=== PATIENT | female | born 1960 | race Caucasian/White ===

== ENCOUNTER 2020-04-04 05:39 | Inpatient (IN) ==
[2020-04-04] MEDS ORDERED: LIDOCAINE 1% 5 ML VIAL ONE (06:04)
[2020-04-04] MEDS ORDERED: BUPIVACAINE SPINAL 0.75% 2 ML AMP SPINAL ONE (06:04)
[2020-04-04] MEDS ORDERED: BUPIVACAINE MPF 0.5% /EPI 30 ML VIAL ONE (06:04)
[2020-04-04] MEDS ORDERED: DEXAMETHASONE 4 MG/1 ML VIAL ONE (06:05)
[2020-04-04] MEDS ORDERED: DEXMEDETOMIDINE 200 MCG/2 ML VIAL ONE (06:05)
[2020-04-04] MEDS ORDERED: MIDAZOLAM 2 MG/2 ML VIAL ONE (06:05)
[2020-04-04] MEDS ORDERED: VANCOMYCIN 1,000 MG VIAL ONE (06:08)
[2020-04-04] MEDS ORDERED: ceFAZolin 1,000 MG VIAL ONE (06:08)
[2020-04-04] MEDS ORDERED: ACETAMINOPHEN 500 MG TABLET PO ONE (06:45)
[2020-04-04] MEDS ORDERED: DIAZEPAM 5 MG TABLET PO ONE (06:45)
[2020-04-04] MEDS ORDERED: FAMOTIDINE 20 MG TABLET PO ONE (06:45)
[2020-04-04] MEDS ORDERED: CLINDAMYCIN INJ 50 ML IV ONE (06:56)
[2020-04-04] MEDS ORDERED: VANCOMYCIN INJ 1,000 MG in SODIUM CHLORIDE 0.9% 250 ML IV ONE (07:00)
[2020-04-04] MEDS ORDERED: CLINDAMYCIN INJ 900 MG in PREMIX 1 EACH IV ONE (07:00)
[2020-04-04] MEDS ORDERED: DIAZEPAM 5 MG TABLET ONE (07:04)
[2020-04-04] MEDS ORDERED: ACETAMINOPHEN 500 MG TABLET ONE (07:04)
[2020-04-04] MEDS ORDERED: FAMOTIDINE 20 MG TABLET ONE (07:04)
[2020-04-04] MEDS: LACTATED RINGERS 1,000 ML IV SCH ×2 (07:20→15:30)
[2020-04-04] MEDS ORDERED: PROMETHAZINE 25 MG/1 ML VIAL IM PRN (09:10)
[2020-04-04] MEDS ORDERED: BISACODYL 10 MG SUPP RECTAL PRN (09:10)
[2020-04-04] MEDS ORDERED: MAGNESIUM HYDROXIDE SUSP 30 ML UDCUP PO PRN (09:10)
[2020-04-04] MEDS ORDERED: diphenhydrAMINE CAP 25 MG CAPSULE PO PRN (09:10)
[2020-04-04] MEDS ORDERED: LACTULOSE 20 GM/30 ML UDCUP PO PRN (09:10)
[2020-04-04] MEDS ORDERED: TRANEXAMIC ACID 1,000 MG/10 ML VIAL ONE (09:43)
[2020-04-04] MEDS ORDERED: ONDANSETRON 4 MG/2 ML VIAL IV PRN (12:58)
[2020-04-04] MEDS ORDERED: HYDROmorphone 2 MG/1 ML VIAL ONE (13:00)
[2020-04-04] MEDS ORDERED: ONDANSETRON 4 MG/2 ML VIAL ONE (13:00)
[2020-04-04] MEDS: HYDROmorphone 2 MG/1 ML VIAL IV PRN ×4 (13:00→15:05)
[2020-04-04] MEDS ORDERED: ALBUTEROL/IPRATROPIUM 3 ML NEB RESP TX ONE (13:14)
[2020-04-04] MEDS ORDERED: KETOROLAC 30 MG/1 ML VIAL IV ONE (15:10)
[2020-04-04] MEDS: CLINDAMYCIN INJ 900 MG in PREMIX 1 EACH IV SCH ×2 (16:11→23:41)
[2020-04-04 16:16] LABS: Basophils % 0.1 % (0.0-0.8); Eosinophils % 0.1 % (0.00-10.9); Hematocrit 41.2 VOL% (35.7-47.0); Hemoglobin 12.8 GM/DL (12.0-16.0); Immature Granulocytes % 0.4 %; Immature Granulocytes Absolute 0.05 #; Lymphocytes # 0.8 10*3/uL (1.4-4.0); Lymphocytes % 6.5 % (21.3-54.2); Mean Corpuscular HGB Conc 31.1 GM/DL (32-36); Mean Corpuscular Volume 91.6 FL (87-102); Mean Platelet Volume 10.5 FL (9.6-12.0); Monocytes % 2.7 % (1.7-12.7); Neutrophils % 90.2 % (38.7-73.9); Platelet Count 260 T/CUMM (130-400); Red Cell Distribution Width 13.9 % (9.3-17.3); White Blood Count 12.8 T/CUMM (4-12)
[2020-04-04 16:21] LABS: Calcium 8.6 MG/DL (8.5-10.1); Osmolality,Calculated 280.5 MOS/KG (273-304)
[2020-04-04] MEDS: DOCUSATE SODIUM 100 MG CAPSULE PO SCH (21:12)
[2020-04-04] MEDS: FONDAPARINUX 2.5 MG/0.5 ML SYRINGE SUBCUT SCH (21:12)
[2020-04-04] MEDS: TEMAZEPAM 7.5 MG CAPSULE PO PRN (21:12)
[2020-04-04] MEDS: PREGABALIN 25 MG CAPSULE PO PRN (23:41)
[2020-04-05 06:23] LABS: Basophils % 0.1 % (0.0-0.8); Hematocrit 36.7 VOL% (35.7-47.0); Hemoglobin 11.5 GM/DL (12.0-16.0); Immature Granulocytes % 0.4 %; Immature Granulocytes Absolute 0.05 #; Lymphocytes # 1.5 10*3/uL (1.4-4.0); Lymphocytes % 13.6 % (21.3-54.2); Mean Corpuscular HGB Conc 31.3 GM/DL (32-36); Mean Corpuscular Volume 90.8 FL (87-102); Mean Platelet Volume 11.1 FL (9.6-12.0); Monocytes % 9.3 % (1.7-12.7); Neutrophils % 76.6 % (38.7-73.9); Platelet Count 253 T/CUMM (130-400); Red Blood Count 4.04 MC/CUMM (3.8-5.5); White Blood Count 11.4 T/CUMM (4-12)
[2020-04-05 06:46] LABS: Calcium 8.7 MG/DL (8.5-10.1); Osmolality,Calculated 282.3 MOS/KG (273-304)
[2020-04-05] MEDS: MONTELUKAST 10 MG TABLET PO SCH (09:04)
[2020-04-05] MEDS: DOCUSATE SODIUM 100 MG CAPSULE PO SCH ×2 (09:04→20:36)
[2020-04-05] MEDS: PANTOPRAZOLE 40 MG TABLET PO SCH (09:05)
[2020-04-05] MEDS: MORPHINE 4 MG/1 ML VIAL IV PRN ×3 (09:06→20:32)
[2020-04-05] MEDS ORDERED: ALBUTEROL/IPRATROPIUM 3 ML NEB RESP TX PRN (09:09)
[2020-04-05] MEDS: ALBUTEROL/IPRATROPIUM 3 ML NEB RESP TX SCH ×2 (12:45→19:27)
[2020-04-05] MEDS: ONDANSETRON 4 MG/2 ML VIAL IV PRN ×2 (14:05→20:35)
[2020-04-05] MEDS: TEMAZEPAM 7.5 MG CAPSULE PO PRN (20:36)
[2020-04-05] MEDS: FONDAPARINUX 2.5 MG/0.5 ML SYRINGE SUBCUT SCH (20:36)
[2020-04-05] MEDS: PREGABALIN 25 MG CAPSULE PO PRN (23:20)
[2020-04-06] MEDS: ALBUTEROL/IPRATROPIUM 3 ML NEB RESP TX SCH ×4 (00:33→19:14)
[2020-04-06 05:04] LABS: Basophils % 0.3 % (0.0-0.8); Eosinophils # 0.5 10*3/uL (0.0-0.87); Eosinophils % 4.4 % (0.00-10.9); Hematocrit 34.6 VOL% (35.7-47.0); Hemoglobin 10.8 GM/DL (12.0-16.0); Immature Granulocytes % 0.3 %; Immature Granulocytes Absolute 0.04 #; Lymphocytes % 33.9 % (21.3-54.2); Mean Corpuscular HGB Conc 31.2 GM/DL (32-36); Mean Platelet Volume 10.8 FL (9.6-12.0); Monocytes % 8.8 % (1.7-12.7); Neutrophils % 52.3 % (38.7-73.9); Platelet Count 255 T/CUMM (130-400); Red Blood Count 3.76 MC/CUMM (3.8-5.5); Red Cell Distribution Width 14.4 % (9.3-17.3); White Blood Count 11.7 T/CUMM (4-12)
[2020-04-06 05:12] LABS: Calcium 8.4 MG/DL (8.5-10.1)
[2020-04-06] MEDS: DOCUSATE SODIUM 100 MG CAPSULE PO SCH ×2 (08:32→21:25)
[2020-04-06] MEDS: PANTOPRAZOLE 40 MG TABLET PO SCH (08:32)
[2020-04-06] MEDS: MONTELUKAST 10 MG TABLET PO SCH (08:32)
[2020-04-06] MEDS: TEMAZEPAM 7.5 MG CAPSULE PO PRN (21:25)
[2020-04-06] MEDS: FONDAPARINUX 2.5 MG/0.5 ML SYRINGE SUBCUT SCH (21:26)
[2020-04-06] MEDS: PREGABALIN 25 MG CAPSULE PO PRN (22:30)
[2020-04-07] MEDS: ALBUTEROL/IPRATROPIUM 3 ML NEB RESP TX SCH ×2 (00:44→07:16)
[2020-04-07] MEDS: PANTOPRAZOLE 40 MG TABLET PO SCH (09:55)
[2020-04-07] MEDS: DOCUSATE SODIUM 100 MG CAPSULE PO SCH (09:55)
[2020-04-07] MEDS: MONTELUKAST 10 MG TABLET PO SCH (09:56)
[2020-04-07 12:37] VITALS: BP 147/74
== END 2020-04-07 13:50 | disposition home health service (06) | DRG 470 ==
LOC: N.OR 05:39 → N.SDSINP 05:41 → N.3E 15:40
PROVIDERS: ADMIT Orthopaedic Surgery; ATTEND Orthopaedic Surgery

== ENCOUNTER 2022-02-02 11:27 | Inpatient (IN) ==
[2022-02-02] MEDS ORDERED: methylPREDNISolone SOD SUC 125 MG/2 ML VIAL IV STA (11:54)
[2022-02-02] MEDS ORDERED: ALBUTEROL NEB SOLN 5 MG/ML 20 ML/BOTTLE CONT NEB SCH (12:00)
[2022-02-02 12:16] LABS: Basophils # 0.1 10*3/uL (0.0-0.2); Basophils % 0.7 % (0.0-0.8); Eosinophils # 0.8 10*3/uL (0.0-0.87); Eosinophils % 7.8 % (0.00-10.9); Hematocrit 47.1 VOL% (35.7-47.0); Hemoglobin 14.4 GM/DL (12.0-16.0); Immature Granulocytes % 0.6 %; Immature Granulocytes Absolute 0.06 #; Lymphocytes % 37.8 % (21.3-54.2); Mean Corpuscular HGB Conc 30.6 GM/DL (32-36); Mean Corpuscular Volume 92.7 FL (87-102); Mean Platelet Volume 10.7 FL (9.6-12.0); Monocytes # 1.2 10*3/uL (0.11-0.8); Monocytes % 10.7 % (1.7-12.7); Neutrophils % 42.4 % (38.7-73.9); Platelet Count 331 T/CUMM (130-400); Red Blood Count 5.08 MC/CUMM (3.8-5.5); Red Cell Distribution Width 14.8 % (9.3-17.3); White Blood Count 10.7 T/CUMM (4-12)
[2022-02-02 12:28] LABS: Alanine Aminotransferase 44 U/L (13-56); Albumin 3.7 G/DL (3.4-5.0); Alkaline Phosphatase 69 U/L (45-117); Aspartate Amino Transferase 24 U/L (0-37); Bilirubin,Total < 0.39 MG/DL (0.20-1.00); Blood Urea Nitrogen 20 MG/DL (7-18); Calcium 9.3 MG/DL (8.5-10.1); Carbon Dioxide 27 MMOL/L (21-32); Chloride 104 MMOL/L (98-107); Glucose 147 MG/DL (74-106); Osmolality,Calculated 280.7 MOS/KG (273-304); Potassium 3.6 MMOL/L (3.5-5.1); Sodium 138 MMOL/L (136-145); Total Protein 7.6 G/DL (6.4-8.2)
[2022-02-02 12:41] LABS: Eosinophils 8 % (0-10); Lymphocytes 34 % (20-55); Total Cells Counted 100
[2022-02-02 12:44] LABS: Stomatocytes Slight
[2022-02-02 12:45] LABS: Platelet Estimate Adequate
[2022-02-02] MEDS ORDERED: ONDANSETRON 4 MG/2 ML VIAL IV PRN (14:40)
[2022-02-02] MEDS ORDERED: GLUCAGON 1 MG VIAL IM PRN (14:40)
[2022-02-02] MEDS ORDERED: hydrALAZINE 20 MG/1 ML VIAL IV PRN (14:40)
[2022-02-02] MEDS ORDERED: SIMETHICONE CHEW 125 MG TABLET PO PRN (14:40)
[2022-02-02] MEDS ORDERED: ACETAMINOPHEN 325 MG TABLET PO PRN (14:40)
[2022-02-02] MEDS ORDERED: DOCUSATE SODIUM 100 MG CAPSULE PO PRN (14:40)
[2022-02-02] MEDS ORDERED: DEXTROSE 10% 250 ML BAG IV PRN (14:48)
[2022-02-02] MEDS ORDERED: LEVOFLOXACIN INJ 750 MG/150 ML PREMIX IV SCH (15:00)
[2022-02-02] MEDS ORDERED: guaiFENesin 200 MG/10 ML UDCUP ONE (15:01)
[2022-02-02] MEDS: BENZONATATE 100 MG CAPSULE PO SCH ×2 (15:15→21:08)
[2022-02-02] MEDS: ENOXAPARIN 40 MG/0.4 ML SYRINGE SUBCUT SCH (15:25)
[2022-02-02 16:05] LABS: Thyroid Stimulating Hormone 5.06 uIU/ml (0.358-3.74)
[2022-02-02] MEDS: LACTATED RINGERS 1,000 ML IV SCH (16:55)
[2022-02-02] MEDS: ALBUTEROL/IPRATROPIUM 3 ML NEB RESP TX SCH ×2 (19:36→23:20)
[2022-02-02] MEDS: BUDESONIDE 0.5 MG/2 ML NEB RESP TX SCH (19:36)
[2022-02-02] MEDS: busPIRone 5 MG TABLET PO SCH (21:03)
[2022-02-02] MEDS: methylPREDNISolone SOD SUC 40 MG/1 ML VIAL IV SCH (21:04)
[2022-02-02] MEDS: guaiFENesin/CODEINE 5 ML LIQUID PO PRN (21:06)
[2022-02-03] MEDS: methylPREDNISolone SOD SUC 40 MG/1 ML VIAL IV SCH ×2 (04:05→15:12)
[2022-02-03 05:45] LABS: Basophils % 0.2 % (0.0-0.8); Hematocrit 41.7 VOL% (35.7-47.0); Hemoglobin 12.9 GM/DL (12.0-16.0); Immature Granulocytes % 0.6 %; Immature Granulocytes Absolute 0.06 #; Lymphocytes # 1.5 10*3/uL (1.4-4.0); Lymphocytes % 16.1 % (21.3-54.2); Mean Corpuscular HGB Conc 30.9 GM/DL (32-36); Monocytes # 0.4 10*3/uL (0.11-0.8); Monocytes % 3.8 % (1.7-12.7); Neutrophils % 79.3 % (38.7-73.9); Platelet Count 279 T/CUMM (130-400); Red Blood Count 4.58 MC/CUMM (3.8-5.5); Red Cell Distribution Width 14.9 % (9.3-17.3); White Blood Count 9.3 T/CUMM (4-12)
[2022-02-03 06:14] LABS: Alanine Aminotransferase 34 U/L (13-56); Albumin 3.2 G/DL (3.4-5.0); Alkaline Phosphatase 55 U/L (45-117); Aspartate Amino Transferase 15 U/L (0-37); Bilirubin,Total < 0.39 MG/DL (0.20-1.00); Blood Urea Nitrogen 15 MG/DL (7-18); Calcium 9.8 MG/DL (8.5-10.1); Carbon Dioxide 23 MMOL/L (21-32); Chloride 109 MMOL/L (98-107); Cholesterol 225 MG/DL (50-200); Glucose 177 MG/DL (74-106); HDL Cholesterol 75 MG/DL (40-60); Osmolality,Calculated 281.5 MOS/KG (273-304); Potassium 4.7 MMOL/L (3.5-5.1); Sodium 139 MMOL/L (136-145); Total Protein 6.6 G/DL (6.4-8.2); Triglycerides 140 MG/DL (2-150)
[2022-02-03] MEDS: ALBUTEROL/IPRATROPIUM 3 ML NEB RESP TX SCH ×3 (07:25→19:31)
[2022-02-03] MEDS: BUDESONIDE 0.5 MG/2 ML NEB RESP TX SCH ×2 (07:25→19:31)
[2022-02-03] MEDS: busPIRone 5 MG TABLET PO SCH ×2 (09:31→20:47)
[2022-02-03] MEDS: MONTELUKAST 10 MG TABLET PO SCH (09:31)
[2022-02-03] MEDS: guaiFENesin/CODEINE 5 ML LIQUID PO PRN ×3 (09:31→23:20)
[2022-02-03] MEDS: THEOPHYLLINE ER 300 MG TABLET PO SCH (09:32)
[2022-02-03] MEDS: CHOLECALCIFEROL 5,000 UNIT TABLET PO SCH (09:32)
[2022-02-03] MEDS: PANTOPRAZOLE 40 MG TABLET PO SCH (09:32)
[2022-02-03] MEDS: FLUCONAZOLE 200 MG TABLET PO SCH (09:32)
[2022-02-03] MEDS: LOSARTAN 25 MG TABLET PO SCH (09:32)
[2022-02-03] MEDS: BENZONATATE 100 MG CAPSULE PO SCH ×3 (09:36→20:48)
[2022-02-03 10:42] LABS: Free T4 (Free Thyroxine) 0.99 NG/DL (0.76-1.46)
[2022-02-03] MEDS: LACTATED RINGERS 1,000 ML IV SCH (12:01)
[2022-02-03] MEDS: ENOXAPARIN 40 MG/0.4 ML SYRINGE SUBCUT SCH (15:12)
[2022-02-04] MEDS: ALBUTEROL/IPRATROPIUM 3 ML NEB RESP TX SCH ×5 (01:08→19:15)
[2022-02-04] MEDS: methylPREDNISolone SOD SUC 40 MG/1 ML VIAL IV SCH ×2 (04:28→20:57)
[2022-02-04] MEDS: BUDESONIDE 0.5 MG/2 ML NEB RESP TX SCH ×2 (07:42→19:15)
[2022-02-04 09:06] LABS: Basophils % 0.2 % (0.0-0.8); Hematocrit 41.2 VOL% (35.7-47.0); Immature Granulocytes Absolute 0.19 #; Lymphocytes # 1.3 10*3/uL (1.4-4.0); Lymphocytes % 7.3 % (21.3-54.2); Mean Corpuscular HGB Conc 31.6 GM/DL (32-36); Mean Platelet Volume 10.2 FL (9.6-12.0); Monocytes # 0.6 10*3/uL (0.11-0.8); Monocytes % 3.3 % (1.7-12.7); Neutrophils % 88.2 % (38.7-73.9); Platelet Count 316 T/CUMM (130-400); Red Blood Count 4.48 MC/CUMM (3.8-5.5); Red Cell Distribution Width 15.2 % (9.3-17.3); White Blood Count 18.1 T/CUMM (4-12)
[2022-02-04 09:18] LABS: Calcium 9.4 MG/DL (8.5-10.1); Osmolality,Calculated 286.4 MOS/KG (273-304); Potassium 3.9 MMOL/L (3.5-5.1)
[2022-02-04 09:29] LABS: Lymphocytes 3 % (20-55); Platelet Estimate Adequate; Total Cells Counted 100
[2022-02-04] MEDS: FLUCONAZOLE 200 MG TABLET PO SCH (10:08)
[2022-02-04] MEDS: PANTOPRAZOLE 40 MG TABLET PO SCH (10:08)
[2022-02-04] MEDS: CHOLECALCIFEROL 5,000 UNIT TABLET PO SCH (10:08)
[2022-02-04] MEDS: LOSARTAN 25 MG TABLET PO SCH (10:08)
[2022-02-04] MEDS: busPIRone 5 MG TABLET PO SCH ×2 (10:08→20:57)
[2022-02-04] MEDS: BENZONATATE 100 MG CAPSULE PO SCH ×3 (10:45→20:54)
[2022-02-04] MEDS: THEOPHYLLINE ER 300 MG TABLET PO SCH ×2 (10:45→17:19)
[2022-02-04] MEDS ORDERED: KETOROLAC 30 MG/1 ML VIAL IV ONE (11:00)
[2022-02-04] MEDS: LIDOCAINE 5% PATCH TRANSDERM SCH (13:14)
[2022-02-04] MEDS: LACTATED RINGERS 1,000 ML IV SCH (14:10)
[2022-02-04] MEDS: MONTELUKAST 10 MG TABLET PO SCH ×2 (14:10→20:57)
[2022-02-04] MEDS: ENOXAPARIN 40 MG/0.4 ML SYRINGE SUBCUT SCH (17:19)
[2022-02-04] MEDS: ALBUTEROL 0.4 MG/ML 30 ML/BOTTLE PO SCH ×2 (17:20→21:03)
[2022-02-04] MEDS: guaiFENesin/CODEINE 5 ML LIQUID PO PRN (20:57)
[2022-02-05] MEDS: ALBUTEROL/IPRATROPIUM 3 ML NEB RESP TX SCH ×4 (01:12→19:40)
[2022-02-05 06:55] LABS: Calcium 9.5 MG/DL (8.5-10.1); Osmolality,Calculated 281.5 MOS/KG (273-304); Potassium 3.7 MMOL/L (3.5-5.1)
[2022-02-05 07:00] LABS: Basophils % 0.3 % (0.0-0.8); Hemoglobin 13.1 GM/DL (12.0-16.0); Immature Granulocytes % 1.5 %; Immature Granulocytes Absolute 0.23 #; Lymphocytes # 1.5 10*3/uL (1.4-4.0); Lymphocytes % 9.7 % (21.3-54.2); Mean Corpuscular Volume 95.6 FL (87-102); Mean Platelet Volume 10.6 FL (9.6-12.0); Monocytes # 0.7 10*3/uL (0.11-0.8); Monocytes % 4.7 % (1.7-12.7); Neutrophils % 83.8 % (38.7-73.9); Platelet Count 354 T/CUMM (130-400); Red Blood Count 4.57 MC/CUMM (3.8-5.5); Red Cell Distribution Width 15.5 % (9.3-17.3)
[2022-02-05 07:07] LABS: Hematocrit 43.7 VOL% (35.7-47.0)
[2022-02-05] MEDS: BUDESONIDE 0.5 MG/2 ML NEB RESP TX SCH ×2 (07:35→19:40)
[2022-02-05] MEDS: MONTELUKAST 10 MG TABLET PO SCH ×2 (09:06→21:54)
[2022-02-05] MEDS: methylPREDNISolone SOD SUC 40 MG/1 ML VIAL IV SCH ×2 (09:06→21:47)
[2022-02-05] MEDS: THEOPHYLLINE ER 300 MG TABLET PO SCH ×2 (09:06→17:07)
[2022-02-05] MEDS: PANTOPRAZOLE 40 MG TABLET PO SCH (09:06)
[2022-02-05] MEDS: busPIRone 5 MG TABLET PO SCH ×2 (09:07→21:46)
[2022-02-05] MEDS: LOSARTAN 25 MG TABLET PO SCH (09:07)
[2022-02-05] MEDS: FLUCONAZOLE 200 MG TABLET PO SCH (09:07)
[2022-02-05] MEDS: LIDOCAINE 5% PATCH TRANSDERM SCH (09:08)
[2022-02-05] MEDS: CHOLECALCIFEROL 5,000 UNIT TABLET PO SCH (09:08)
[2022-02-05] MEDS: BENZONATATE 100 MG CAPSULE PO SCH ×3 (09:08→21:47)
[2022-02-05] MEDS: ALBUTEROL 0.4 MG/ML 30 ML/BOTTLE PO SCH ×3 (09:10→21:55)
[2022-02-05] MEDS ORDERED: POLYETHYLENE GLYCOL POWDER 17 GM PACK PO PRN (10:43)
[2022-02-05] MEDS: DORNASE ALFA 2.5 MG/2.5 ML VIAL RESP TX SCH ×2 (13:55→19:51)
[2022-02-05] MEDS: ENOXAPARIN 40 MG/0.4 ML SYRINGE SUBCUT SCH (14:22)
[2022-02-05] MEDS: guaiFENesin/CODEINE 5 ML LIQUID PO PRN (21:47)
[2022-02-06] MEDS: ALBUTEROL/IPRATROPIUM 3 ML NEB RESP TX SCH ×4 (00:25→19:03)
[2022-02-06] MEDS: BUDESONIDE 0.5 MG/2 ML NEB RESP TX SCH ×2 (07:15→19:03)
[2022-02-06] MEDS: DORNASE ALFA 2.5 MG/2.5 ML VIAL RESP TX SCH ×2 (07:25→19:03)
[2022-02-06 08:42] LABS: Basophils % 0.2 % (0.0-0.8); Hematocrit 40.2 VOL% (35.7-47.0); Hemoglobin 12.5 GM/DL (12.0-16.0); Immature Granulocytes % 3.4 %; Immature Granulocytes Absolute 0.41 #; Lymphocytes # 1.8 10*3/uL (1.4-4.0); Mean Corpuscular HGB Conc 31.1 GM/DL (32-36); Mean Corpuscular Volume 91.8 FL (87-102); Monocytes # 0.6 10*3/uL (0.11-0.8); Neutrophils % 76.4 % (38.7-73.9); Platelet Count 295 T/CUMM (130-400); Red Blood Count 4.38 MC/CUMM (3.8-5.5); White Blood Count 12.1 T/CUMM (4-12)
[2022-02-06 09:01] LABS: Calcium 9.4 MG/DL (8.5-10.1); Osmolality,Calculated 282.4 MOS/KG (273-304); Potassium 4.2 MMOL/L (3.5-5.1)
[2022-02-06] MEDS ORDERED: diphenhydrAMINE 50 MG/1 ML VIAL IM ONE (09:05)
[2022-02-06] MEDS ORDERED: MIDAZOLAM 2 MG/2 ML VIAL IV ONE (09:05)
[2022-02-06] MEDS ORDERED: MEPERIDINE 50 MG/1 ML VIAL IM ONE (09:05)
[2022-02-06] MEDS ORDERED: BENZONATATE 100 MG CAPSULE PO ONE (09:06)
[2022-02-06] MEDS ORDERED: LIDOCAINE 2% VISCOUS 100 ML BOTTLE SWISH/SPIT ONE (09:07)
[2022-02-06] MEDS ORDERED: LIDOCAINE 2% 20 ML VIAL RESP TX ONE (09:07)
[2022-02-06] MEDS ORDERED: LIDOCAINE 1% 20 ML VIAL MISC INJ ONE (09:07)
[2022-02-06] MEDS: LIDOCAINE 5% PATCH TRANSDERM SCH (09:31)
[2022-02-06] MEDS: methylPREDNISolone SOD SUC 40 MG/1 ML VIAL IV SCH ×2 (09:31→21:51)
[2022-02-06] MEDS ORDERED: ALBUTEROL/IPRATROPIUM 3 ML NEB RESP TX ONE (10:37)
[2022-02-06] MEDS ORDERED: methylPREDNISolone SOD SUC 40 MG/1 ML VIAL IV ONE (11:00)
[2022-02-06] MEDS: THEOPHYLLINE ER 300 MG TABLET PO SCH ×2 (13:08→16:28)
[2022-02-06] MEDS: MONTELUKAST 10 MG TABLET PO SCH ×2 (13:09→21:51)
[2022-02-06] MEDS: PANTOPRAZOLE 40 MG TABLET PO SCH (13:09)
[2022-02-06] MEDS: LOSARTAN 25 MG TABLET PO SCH (13:09)
[2022-02-06] MEDS: busPIRone 5 MG TABLET PO SCH ×2 (13:09→21:52)
[2022-02-06] MEDS: FLUCONAZOLE 200 MG TABLET PO SCH (13:09)
[2022-02-06] MEDS: ALBUTEROL 0.4 MG/ML 30 ML/BOTTLE PO SCH ×3 (13:09→21:52)
[2022-02-06] MEDS: CHOLECALCIFEROL 5,000 UNIT TABLET PO SCH (13:10)
[2022-02-06] MEDS: BENZONATATE 100 MG CAPSULE PO SCH ×3 (13:10→21:52)
[2022-02-06] MEDS: ENOXAPARIN 40 MG/0.4 ML SYRINGE SUBCUT SCH (16:30)
[2022-02-06] MEDS ORDERED: ZALEPLON 5 MG CAPSULE PO PRN (21:26)
[2022-02-07] MEDS: ALBUTEROL/IPRATROPIUM 3 ML NEB RESP TX SCH ×3 (00:57→13:20)
[2022-02-07] MEDS: BUDESONIDE 0.5 MG/2 ML NEB RESP TX SCH (07:10)
[2022-02-07] MEDS: DORNASE ALFA 2.5 MG/2.5 ML VIAL RESP TX SCH (07:10)
[2022-02-07] MEDS: THEOPHYLLINE ER 300 MG TABLET PO SCH (08:55)
[2022-02-07] MEDS: methylPREDNISolone SOD SUC 40 MG/1 ML VIAL IV SCH (08:55)
[2022-02-07] MEDS: FLUCONAZOLE 200 MG TABLET PO SCH (08:55)
[2022-02-07] MEDS: BENZONATATE 100 MG CAPSULE PO SCH (08:56)
[2022-02-07] MEDS: LOSARTAN 25 MG TABLET PO SCH (08:56)
[2022-02-07] MEDS: MONTELUKAST 10 MG TABLET PO SCH (08:56)
[2022-02-07] MEDS: CHOLECALCIFEROL 5,000 UNIT TABLET PO SCH (08:56)
[2022-02-07] MEDS: PANTOPRAZOLE 40 MG TABLET PO SCH (08:56)
[2022-02-07] MEDS: busPIRone 5 MG TABLET PO SCH (08:56)
[2022-02-07] MEDS: ALBUTEROL 0.4 MG/ML 30 ML/BOTTLE PO SCH (08:56)
[2022-02-07] MEDS: LIDOCAINE 5% PATCH TRANSDERM SCH (08:57)
[2022-02-07 12:41] VITALS: BP 160/80
[2022-02-08 14:38] LABS: M. Tuberculosis PCR Result Negative (Negative); M. Tuberculosis PCR Source BRONCH WASH
== END 2022-02-07 15:01 | disposition home or self-care (01) | DRG 191 ==
LOC: N.ED 11:27 → INTOOBSV 14:40 → N.EDINP 14:40 → SUATTDRO 14:40 → N.5E 15:08 → SUATTDRO 02-05 15:14
PROVIDERS: ADMIT Internal Medicine; ATTEND Internal Medicine